=== PATIENT | male | born 1990 | race Hispanic/Latino ===

== ENCOUNTER 2017-05-29 19:39 | Inpatient (IN) | payer MEDICAID, OTHER ==
[2017-05-29 20:22] LABS: BASO # 0.1 K/uL (0.0-0.2); BASO % 0.5 % (0.0-2.0); EOS # 0.1 K/uL (0.0-0.7); HEMATOCRIT 36.3 % (35.0-51.0); LYMPH # 1.6 K/uL (1.0-4.3); LYMPH % 16.2 % (20.0-40.0); MEAN CELL VOLUME 86.5 fL (80.0-94.0); MEAN CORPUSCULAR HEMOGLOBIN 30.1 pg (27.0-31.0); MEAN CORPUSCULAR HGB CONC 34.8 g/dL (33.0-37.0); MEAN PLATELET VOLUME 7.3 fL (7.2-11.7); MONO # 0.5 K/uL (0.0-0.8); MONO % 4.8 % (0.0-10.0); WHITE BLOOD COUNT 10.1 K/uL (4.8-10.8)
[2017-05-29 20:30] LABS: CHLORIDE 95 mmol/L (98-107)
[2017-05-29 20:31] LABS: POTASSIUM 3.7 mmol/L (3.6-5.2); SODIUM 139 mmol/L (132-148)
[2017-05-29 20:33] LABS: AST/SGOT 17 U/L (17-59); BILIRUBIN,TOTAL 0.6 mg/dL (0.2-1.3); CARBON DIOXIDE 28 mmol/L (22-30); GFR AFRICAN-AMERICAN > 60
[2017-05-29 20:34] LABS: ALB/GLOB RATIO 1.5 (1.0-2.1); ALCOHOL SERUM < 10 mg/dl (0-10); ALKALINE PHOSPHATASE 46 U/L (38-126); ALT/SGPT 29 U/L (21-72); BLOOD UREA NITROGEN 11 mg/dL (9-20); CALCIUM 9.4 mg/dl (8.6-10.4); GLUCOSE,RANDOM 85 mg/dL (75-110); TOTAL PROTEIN 7.2 g/dL (6.3-8.3)
--- NOTE | 2017-05-29 21:12 | C.PDOC ---
History Of Present Illness 26 year old male with no past medical history presents to the ED seeking detox from heroin. Last heroin use was an hour and a half prior to arrival of 15 bags. He uses 15-30 bags a day. Patient states he began to use substances 10 years ago beginning with marijuana and cocaine before escalating to heroin. He occasionally snorts or smokes cocaine. Patient smokes one pack of cigarettes daily. He denies physical complaints, suicidal, or homicidal ideations. Time Seen by Provider: 05/29/17 19:51 Chief Complaint (Nursing): Substance Abuse History Per: Patient History/Exam Limitations: no limitations Suicide/Self Injury Attempted (Context): None Modifying Factor(s): Narcotics (heroin ) Severity: None Pain Scale Rating Of: 0 Associated Symptoms: denies: Suicidal Thoughts, Suicidal Plan Involuntary Hold By: None Recent travel outside of the [place]: No Past Medical History Reviewed: Historical Data, Nursing Documentation, Vital Signs Vital Signs: Last Vital Signs Temp 98.8 F 05/29/17 19:44 Pulse 118 H 05/29/17 19:44 Resp 20 05/29/17 19:44 BP 114/75 05/29/17 19:44 Pulse Ox 97 05/29/17 22:17 Family History: States: Unknown Family Hx - Social History Hx Alcohol Use: No Hx Substance Use: Yes - Immunization History Hx Tetanus Toxoid Vaccination: No Hx Influenza Vaccination: No Hx Pneumococcal Vaccination: No Review Of Systems Constitutional: Negative for: Fever, Chills Cardiovascular: Negative for: Chest Pain, Palpitations Respiratory: Negative for: Cough, Shortness of Breath Gastrointestinal: Negative for: Nausea, Vomiting, Abdominal Pain, Diarrhea Neurological: Negative for: Weakness, Numbness Physical Exam - Physical Exam Appears: Non-toxic, No Acute Distress Skin: Warm, Dry Head: Atraumatic, Normacephalic Eye(s): bilateral: Other (pin point pupils ) Oral Mucosa: Moist Neck: Supple Chest: Symmetrical, No Deformity Cardiovascular: Rhythm Regular, No Murmur Respiratory: Normal Breath Sounds, No Rales, No Rhonchi, No Wheezing Gastrointestinal/Abdominal: Soft, No Tenderness, No Distention, No Guarding, No Rebound Extremity: Normal ROM, No Tenderness, Capillary Refill (good capillary refill, less than two seconds ), No Swelling, Other (Track hyatt to bilateral antecubital and brachial regions with no abscesses. ) Neurological/Psych: Oriented x3 ED Course And Treatment - Laboratory Results Result Diagrams: 05/29/17 20:18 05/29/17 20:18 Lab Interpretation: Abnormal (tox + opiates/cocaine) O2 Sat by Pulse Oximetry: 97 (RA) Progress Note: Labs were ordered and patient was evaluated by workers compensation consultant. Reevaluation Time: 22:25 Reassessment Condition: Improved - Physician Consult Information Outcome Of Conversation: 2230: d/w Crisis, workers, ok to Detox Medical Decision Making Medical Decision Making: persistent heroine, cocaine abuse Disposition Doctor Will See Patient In The: Hospital Counseled Patient/Family Regarding: Studies Performed, Diagnosis - Disposition Disposition: HOME/ ROUTINE Disposition Time: 22:26 Condition: GOOD Forms: [facility] ([facility]) - Clinical Impression Clinical Impression: Heroin abuse, Cocaine abuse - Scribe Statement The provider has reviewed the documentation as recorded by the Scribe Maureen Wilkes All medical record entries made by the Scribe were at my direction and personally dictated by me. I have reviewed the chart and agree that the record accurately reflects my personal performance of the history, physical exam, medical decision making, and the department course for this patient. I have also personally directed, reviewed, and agree with the discharge instructions and disposition.
[2017-05-29 21:46] LABS: RBC URINE < 1 /hpf (0-3); URINE BACTERIA RARE (<OCC); URINE BILIRUBIN NEGATIVE (NEGATIVE); URINE BLOOD NEGATIVE (NEGATIVE); URINE COLOR Yellow (YELLOW); URINE GLUCOSE (UA) NORMAL (Normal); URINE KETONE NEGATIVE (NEGATIVE); URINE LEUKOCYTE ESTERASE NEG Leu/uL (Negative); URINE PROTEIN NEGATIVE (NEGATIVE); WBC URINE 2 /hpf (0-5)
--- NOTE | 2017-05-30 01:51 | PCM.BM ---
<Audra Monzon - Last Filed: 05/30/17 01:49> Treatment assets and liabiliti Patient Assests: ADL independent, physically healthy Patient Liabilities: poor support system ("I live in the [place]"), substance abuse - Milieu Protocol Maintain good personal hygiene: daily Encourage regular showers, daily Remind patient to perform daily oral care Maintain personal safety: every shift Educate patient to report safety concerns to staff, every shift Monitor environment for contraband/sharps Medication safety: Monitor for expected outcome, potential side effects: every shift, Assess barriers to learning: every shift, Assess readiness for medication education: every shift <Liz Warren - Last Filed: 06/01/17 08:26> Family Contact Family involvement: Famliy/SO not involved Family contact: Patient agrees to contact - Goals for Treatment Patient goals for treatment: Complete detox and transition to long-term treatment. Discharge/Continuing Care - Education Needs Education Needs: Patient Medication, Patient Diagnosis/Disease Process, Patient Coping Skills, Patient Anger Management skills, Patient Placement options, Patient Community resources - Discharge Discharge Criteria: No longer exhibiting s/s of withdrawal, Reduction of target symptoms Discharge to:: Substance Abuse Rehab - Treatment Team Participation Patient/Family/SO Statement: 06/01/17 08:25 "I need to go inpatient from here..." Discussed with Family/SO: No Was Patient/Family/SO present at Treatment Team Meeting: Yes <Amol Mg - Last Filed: 06/11/17 08:45> - Diagnosis (1) Opioid use disorder, severe, dependence Status: Acute Interventions: 06/01/17 08:44 * Assess 7x/week regarding severity of withdrawal * Educate regarding risks, benefits, side effects and alternatives of medications * Use Motivational Interviewing for abstinence * Use CBT for relapse prevention * Medication management for withdrawal symptoms * Encourage medication assisted treatment *
[2017-05-30] MEDS ORDERED: Buprenorphine Hydrochloride 2 mg SL ONE ×2 (10:30→11:30)
--- NOTE | 2017-05-30 20:22 | PCM.PSYCH ---
Initial Psychiatric Evaluation - Initial Psychiatric Evaluation Type of Admission: Voluntary Legal Status: Capacity Chief Complaint (in patient's own words): My body is hurting History of Present Illness and Precipitating Events: This is a 26 year old male with no past medical history admitted for heroin detox. Last heroin (15-30 bags)use was yesterday an hour and a half prior to arrival to ED. He uses 15-30 bags a day. He stated that he start using heroin at the age of 16. He is injecting 20 bags of heroin on daily basis. He reported opioid withdrawal symptoms, such as nasal congestion, watery eyes, body aches, nausea, headaches, feeling cold turkey and requested to start detox. Pt reported that he was not able to stay without using heroin and had withdrawal symptoms in past. No history of detox or inpatient rehab Patient states he began to use substances 10 years ago beginning with marijuana and cocaine before escalating to heroin. He occasionally snorts or smokes cocaine. Patient smokes one pack of cigarettes daily. He denies physical complaints, suicidal, or homicidal ideation. He denied depressive symptoms, manic symptoms. He denied perceptual disturbances. Time spend 33 minutes Current Medications: Active Medications Generic Name Dose Route Start Last Admin Trade Name Freq PRN Reason Stop Dose Admin Clonidine HCl 0.1 mg 05/29/17 22:14 Catapres PO Q8 PRN COWS Score More or Equal to 5 Haloperidol 5 mg 05/29/17 22:28 Haldol PO Q8H PRN severe agitation, hallucinatio Hydroxyzine HCl 25 mg 05/29/17 22:14 Atarax PO Q6 PRN Anxiety Ibuprofen 400 mg 05/29/17 22:14 Motrin Tab PO Q6 PRN Pain, Mild (1-3) Loperamide HCl 2 mg 05/29/17 22:14 Imodium PO Q8 PRN Diarrhea Lorazepam 2 mg 05/29/17 22:14 05/30/17 12:54 Ativan PO 2 mg Q8H PRN Administration Severe Agitation Ondansetron HCl 4 mg 05/29/17 22:14 Zofran Tab PO Q8 PRN Nausea/Vomiting Trazodone HCl 50 mg 05/29/17 22:19 Desyrel PO HS PRN Insomnia Past Psychiatric History - Past Psychiatric History Prior Professional Help: denied Prior Psychiatric Treatment: he reproted that he was receiving treatment of depression 2 years ago At [facility]: [facility] Nature of Treatment: Wellbutrin History of Abuse: denied History of ETOH/Drug Use: denied alcohol use. Substance use please see HPI History of Family Illness: denied Pertinent Medical Hx (Current Medical&Sleep Prob, Allergies): Allergies Allergy/AdvReac Type Severity Reaction Status Date / Time No Known Allergies Allergy Verified 05/29/17 19:48 No Known Home Med 05/29/17 Review of Systems - Review of Systems Systems not reviewed;Unavailable: Acuity of Condition All systems: reviewed and no additional remarkable complaints except (please see HPI) - EENT Eyes: As Per HPI Ears: As Per HPI Nose/Mouth/Throat: Nasal Congestion - Musculoskeletal Musculoskeletal: Muscle Cramps, Myalgias Mental Status Examination - Personal Presentation Personal Presentation: Looks stated age, Dressed appropriate to season - Affect Affect: Constricted - Motor Activity Motor Activity: Psychomotor Agitation - Reliability in Providing Information Reliability in Providing Information: Fair - Speech Speech: Organized, Coherent - Mood Mood: Anxious - Formal Thought Process Formal Thought Process: No Impairment - Hallucinations/Delusions Delusions: Other (denied) - Obsessions/Compulsions Obsessions: No Compulsions: No - Cognitive Functions Orientation: Person, Place, Situation, Time Sensorium: Alert Attention/Concentration: Attentive Abstract Thinking: [place] Estimate of Intelligence: Average Judgement: Intact, as evidence by: Good judgement, Intact, as evidence by: Insight regarding need for hospitalization Memory: Recent intact, as evidence by: Ability to recall events of the day - Risk Risk: Other (denied SI, HI, Intent or plan, no access to gun, no previous suicide attempt) - Strength & Assets Inventory Strength & Assets Inventory: Education, Skills, Interests/hobbies, Spiritual affiliations, Cooperative - Limitations Limitations: Living alone DSM 5 DX - DSM 5 DSM 5 Diagnosis: Opioid use disorder, severe Opioid withdrawal Cocaine use disorder - Recommended/Plan of Treatment Treatment Recommendations and Plan of Treatment: Subutex detox As needed medications Gabapentin for augmentation Attend groups and activities Supportive therapy and psychoeducation [place] for abstinence CBT for relapse prevention Encourage MAT Refer to rehab or IOP Attend self-help groups as well. Time Spend 33 minutes Projected ELOS: 3-4 days Prognosis: fair medication Discharge Plan and Discharge Criteria: as per floor SW - Smoking Cessation Smoking Cessation Initiated: Yes
[2017-05-31] MEDS: Buprenorphine Hydrochloride 2 mg SL SCH (09:18)
--- NOTE | 2017-05-31 19:32 | PCM.PYCHPN ---
Psychiatric Progress Note - Psychiatric Progress Note Patient seen today, length of contact: 15 minutes Patient Chief Complaint: My body is hurting Problems Identified/Issues Discussed: The pt is seen, chart reviewed, case discussed with staff. Support given, CBT and MA used briefly No new symptoms reported, improving slowly and needs more time No SEs from medications, risks discussed. After care discussed DSM 5 Symptoms Update: Opioid use d/o, severe, dependence Opioid withdrawal cocaine abuse Medication Change: Yes (Subutex taper) Medical Record Reviewed: Yes Mental Status Examination - Cognitive Function Orientation: Person, Place, Situation, Time Memory: Intact Attention: WNL Concentration: WNL Association: [facility] Fund of Knowledge: [facility] Decription of patient's judgement and insights: Fair/improving - Mood Mood: Anxious - Affect Affect: Constricted, Other (congruent with mood) - Formal Thought Process Formal Thought Process: No Impairment Psychotic Thoughts and Behaviors: denied - Suicidal Ideation Suicidal Ideation: No - Homicidal Ideation Homicidal Ideation: No Goal/Treatment Plan - Goal/Treatment Plan Need for Continued Stay: Discharge may exacerbated symptoms Progress Toward Problem(s) and Goals/Treatment Plan: Subutex detox As needed medications Gabapentin for augmentation Attend groups and activities Supportive therapy and psychoeducation [place] for abstinence CBT for relapse prevention Encourage MAT Refer to rehab or IOP Attend self-help groups as well. Estimated Date of D/C: 06/02/17 - Smoking Cessation Smoking Cessation Initiated: Yes
[2017-06-01] MEDS: Buprenorphine Hydrochloride 2 mg SL SCH (09:11)
--- NOTE | 2017-06-01 13:08 | PCM.PYCHPN ---
Psychiatric Progress Note - Psychiatric Progress Note Patient seen today, length of contact: 16 minutes Patient Chief Complaint: "Tired" Problems Identified/Issues Discussed: The pt is seen, chart reviewed, case discussed with staff. The pt is compliant with medications and reports no side-effects. Symptoms are improving but needs more time to stabilize. After care discussed, support and psychoeducation given. Medication Change: Yes (Subutex taper) Medical Record Reviewed: Yes Mental Status Examination - Cognitive Function Orientation: Person, Place, Situation, Time Memory: Intact Attention: WNL Concentration: WNL Association: WNL Fund of Knowledge: WNL - Mood Mood: Anxious - Affect Affect: Constricted, Other (congruent with mood) - Formal Thought Process Formal Thought Process: No Impairment - Suicidal Ideation Suicidal Ideation: No - Homicidal Ideation Homicidal Ideation: No Goal/Treatment Plan - Goal/Treatment Plan Need for Continued Stay: Discharge may exacerbated symptoms Progress Toward Problem(s) and Goals/Treatment Plan: Continue medications Support and psychoeducation daily Attend groups and activities daily After care planning by counselor [place] and CBT Consider MAT Rehab or IOP - he needs his ID first Estimated Date of D/C: 06/03/17
[2017-06-02] MEDS: Buprenorphine Hydrochloride 2 mg SL SCH (09:52)
--- NOTE | 2017-06-02 11:15 | PCM.PYCHPN ---
Psychiatric Progress Note - Psychiatric Progress Note Patient seen today, length of contact: 15 min Patient Chief Complaint: "Withdrawing" Problems Identified/Issues Discussed: The pt is seen, chart reviewed, case discussed with staff. Support given, CBT and [place] used briefly No new symptoms reported, improving slowly and needs more time No SEs from medications, risks discussed. After care discussed Medication Change: Yes (Subutex taper) Medical Record Reviewed: Yes Mental Status Examination - Cognitive Function Orientation: Person, Place, Situation, Time Memory: Intact Attention: WNL Concentration: WNL Association: WNL Fund of Knowledge: WNL - Mood Mood: Anxious - Affect Affect: Constricted, Other (congruent with mood) - Formal Thought Process Formal Thought Process: No Impairment - Suicidal Ideation Suicidal Ideation: No - Homicidal Ideation Homicidal Ideation: No Goal/Treatment Plan - Goal/Treatment Plan Need for Continued Stay: Discharge may exacerbated symptoms, Severe functional impairment Progress Toward Problem(s) and Goals/Treatment Plan: Continue medications Support and psychoeducation daily Attend groups and activities daily After care planning by counselor [place] and CBT Consider MAT Rehab or IOP - he needs his ID first Estimated Date of D/C: 06/03/17
[2017-06-03 06:30] VITALS: TEMP 98.2
--- NOTE | 2017-06-03 08:50 | PCM.PYCHDC ---
Mental Status Examination - Mental Status Examination Orientation: Person, Place, Situation, Time Memory: Intact Mood: Anxious Affect: Constricted Speech: Appropriate Attention: WNL Concentration: WNL Association: WNL Fund of Knowledge: WNL Formal Thought Process: No Impairment Suicidal Ideation: No Current Homicidal Ideation?: No Discharge Summary - Discharge Note Reason for Hospitalization: Heroin detox Psychiatric History (includes Medical, Family, Personal Hx): Wellbutrin for mod depression Consultations:: List each consultation separately and include: 1. Reason for request. 2. Findings. 3. Follow-up Summary of Hospital Course include:: 1. Description of specific treatment plan utilized for patients during their course of treatmen. 2. Summarize the time- course for resolution of acute symptoms and/or regressed behaviors. 3. Describe issues identified and worked on during hospitalization. 4. Describe medication utilized. 5. Describe medical problems identified and treated. 6. Reassessment of suicide risk Summary of Hospital Course: The pt was admitted and started on treatment with psychotherapy, support, psychoeducation and medications. MT and CBT used. The pt attended groups and activities, as well as milieu therapy. All the risks and benefits of medications are discussed and the patient understood and agreed. The pt improved with the treatments provided. After care discussed with the patient. He agreed to go to [facility] - Final Diagnosis (DSM 5) Condition upon Discharge: GOOD DSM 5: Opioid use disorder, severe Opioid withdrawal Cocaine use disorder Depressive d/o - unspecified Disposition: REHAB FACILITY/REHAB UNIT Follow-up Treatment Plan: Continue below medications after discharge. Follow after care plan as discussed. Use relapse prevention skills Return to ER or call 911 if suicidal, homicidal or symptoms relapse. Stay away from stress, alcohol and drugs. See primary doctor regularly and get labs. Prescriptions/Medication Reconciliation: buPROPion XL [Wellbutrin XL] 150 mg PO DAILY #30 t24 traZODone [Desyrel] 100 mg PO HS PRN #30 tab PRN Reason: Insomnia
[2017-06-03] MEDS ORDERED: buPROPion 150 mg/24 Hours XL Tab PO SCH (10:00)
[2017-06-03] MEDS ORDERED: Buprenorphine Hydrochloride 2 mg SL ONE (10:00)
[2017-06-03 10:10] VITALS: BP 108/65; PULSE 85; RESP 20; O2SAT 98
== END 2017-06-03 10:00 | disposition home or self-care (01) | DRG 745 ==
LOC: C.ER 19:39 → C.7D 22:22
PROVIDERS: ADMIT Psychiatry & Neurology Psychiatry; ATTEND Psychiatry & Neurology Psychiatry
PROC: HZ2ZZZZ Detoxification Services for Substance Abuse Treatment (ICD-10-PCS; principal; 2017-05-29)
PROC: HZ59ZZZ Individual Psychotherapy for Substance Abuse Treatment, Supportive (ICD-10-PCS; 2017-05-29)
PROC: HZ46ZZZ Group Counseling for Substance Abuse Treatment, Psychoeducation (ICD-10-PCS; 2017-05-29)
DX: F11.23 Opioid dependence with withdrawal (principal); F14.10 Cocaine abuse, uncomplicated; F17.210 Nicotine dependence, cigarettes, uncomplicated